=== PATIENT | male | born 1955 | race Two or more races ===

== ENCOUNTER 2017-06-17 12:17 | Emergency (ER) | payer BC ==
[~2017-06-17] VITALS: Ht 177.8 cm; Wt 118.8 kg
[2017-06-17] MEDS ORDERED: morphine 2 MG/ML inj. syringe IV ONE (14:15)
[2017-06-17] MEDS: ondansetron/PF 4mg/2ml inj IV ONE (14:31)
[2017-06-17] MEDS: morphine 4 MG/ML inj SYRINge IV ONE ×2 (14:31→16:32)
[2017-06-17 17:26] LABS: ALANINE AMINOTRANSFERASE 25 U/L (12-78); ALBUMIN 3.8 G/DL (3.4-5.0); ALKALINE PHOSPHATASE 89 IU/L (46-116); ANION GAP 9 (8-16); ASPARTATE AMINO TRANSFERASE 16 U/L (10-37); BILIRUBIN,TOTAL 0.3 MG/DL (0.1-1.0); BLOOD UREA NITROGEN 15 MG/DL (7-18); BUN/CREATININE RATIO 14.4 (5.4-32.0); CALCIUM 9.2 MG/DL (8.5-10.1); CHLORIDE 102 MMOL/L (99-107); CREATININE 1.04 MG/DL (0.60-1.10); GLUCOSE 117 MG/DL (70-104); POTASSIUM 4.1 MMOL/L (3.5-5.1); SODIUM 139 MMOL/L (135-145); TOTAL CARBON DIOXIDE 27.8 MMOL/L (24-32); TOTAL PROTEIN 7.8 G/DL (6.4-8.2); eGFR 73 ML/MIN
[2017-06-17] MEDS: nicotine 21mg patch - 24 hr TD ONE (17:35)
[2017-06-17] MEDS: nicotine 14mg patch - 24hr TD ONE (17:50)
[2017-06-17 18:09] LABS: BASOPHILS % (AUTO) 0.2 % (0-1); EOSINOPHILS # (AUTO) 0.1 X10'3 (0-0.9); HEMATOCRIT 42.7 % (42.0-52.0); HEMOGLOBIN 14.9 g/dl (14.0-17.9); LYMPHOCYTES # (AUTO) 1.6 X10'3 (1.1-4.8); LYMPHOCYTES % (AUTO) 17.2 % (21-51); MEAN CORPUSCULAR HEMOGLOBIN 31.2 PG (27.0-31.0); MEAN CORPUSCULAR HGB CONC 34.9 % (33.0-36.5); MEAN CORPUSCULAR VOLUME 89.6 FL (78-98); MEAN PLATELET VOLUME 6.9 FL (7.4-10.4); MONOCYTES # (AUTO) 0.2 X10'3 (0-0.9); MONOCYTES % (AUTO) 2.1 % (2-12); NEUTROPHILS # (AUTO) 7.2 X10'3 (1.8-7.7); NEUTROPHILS % (AUTO) 79.5 % (42-75); PLATELET COUNT 286 X10'3 (140-440); RED BLOOD COUNT 4.77 X10'6 (4.70-6.10); RED CELL DISTRIBUTION WIDTH 14.6 % (11.5-14.5); WHITE BLOOD COUNT 9.1 X10'3 (4.5-11.0)
[2017-06-17] MEDS: bisacodyl 5mg tablet.DR PO PRN (18:24)
[2017-06-17] MEDS: mineral oil 133ml enema RC STA (18:25)
[2017-06-17 19:37] VITALS: BP 148/84
== END 2017-06-17 19:52 | disposition left against medical advice (07) ==
LOC: ER 12:19
DX: C18.9 Malignant neoplasm of colon, unspecified (principal)
CPT/HCPCS: 36415; 74176; 80053; 85025; 96374; 96375; 96376; 99285; J2270; J2405